=== PATIENT | female | born 2000 | race Caucasian/White ===

== ENCOUNTER → 2023-01-01 10:37 | Outpatient (CLI) | payer OTHER, SELFPAY ==
[2023-01-01 11:06] LABS: Add Manual Diff / Slide Review NO; Basophils Absolute Auto 100 /uL (0-100); Basophils Percent Auto 1.4 % (0-2); Eosinophils Absolute Auto 300 /uL (0-450); Eosinophils Percent Auto 6.7 % (2-4); Hematocrit 40.9 % (36-46); Hemoglobin 13.6 g/dL (12.0-16.0); Lymphocytes Absolute Auto 1400 /uL (1100-4500); Mean Corpuscular HGB Conc 33.2 % (30-36); Mean Corpuscular Hemoglobin 29.9 PG (26-34); Mean Corpuscular Volume 90.1 fL (80-100); Monocytes Absolute Auto 500 /uL (0-900); Monocytes Percent Auto 9.9 % (3-14); Neutrophils Absolute Auto 2800 /uL (1500-7000); Platelet Count 274 X10^3/uL (150-400); Red Blood Cell Count 4.54 X10^6/uL (4.0-5.2); Red Cell Distribution Width 12.5 % (11.6-14.8)
[2023-01-01 11:16] LABS: Alanine Aminotransferase 14 IU/L (<35); Albumin 4.3 g/dL (3.5-5.0); Albumin Globulin Ratio 1.5 (1.0-2.8); Alkaline Phosphatase 50 U/L (38-126); Aspartate Aminotransferase 20 IU/L (14-36); BUN Creatinine Ratio 18.5 (6-22); Blood Urea Nitrogen 12 mg/dL (7-17); Calcium 8.9 mg/dL (8.4-10.2); Carbon Dioxide 27 mmol/L (22-32); Chloride 104 mmol/L (98-107); Cholesterol 157 mg/dL (140-199); Estimated Glomerular Filt Rate > 60 mL/min (>60); Globulin 2.8 g/dL (1.7-4.1); Glucose 89 mg/dL (70-100); HDL Cholesterol 48 mg/dL (40-60); HEMOLYSIS < 15 (0-50); LDL Cholesterol Calculated 101 mg/dL (<100); Potassium 3.4 mmol/L (3.4-5.1); Sodium 140 mmol/L (137-145); Total Protein 7.1 g/dL (6.3-8.2); Triglycerides 38 mg/dL (35-150)
[2023-01-01 11:47] LABS: TSH w/ Reflex to FT4 3.28 uIU/mL (0.47-4.68)
[2023-01-01 12:05] LABS: Vitamin B12 307 pg/mL (239-931)
== END ==
PROVIDERS: PCP Family Medicine; Referring Provider Family Medicine; Visit Provider Family Medicine
DX: R11.2 Nausea with vomiting, unspecified (principal); R63.1 Polydipsia
CPT/HCPCS: 36415; 80053; 80061; 82306; 82607; 83036; 84443; 85025

== ENCOUNTER → 2023-01-08 11:10 | Outpatient (CLI) | payer OTHER, SELFPAY ==
[2023-01-10 09:38] LABS: Parathyroid Hormone Int 34 pg/mL (15-65)
== END ==
PROVIDERS: PCP Family Medicine; Referring Provider Family Medicine; Visit Provider Family Medicine
DX: R11.2 Nausea with vomiting, unspecified (principal)
CPT/HCPCS: 36415; 83970

== ENCOUNTER → 2023-01-24 12:12 | Outpatient (CLI) | payer OTHER, SELFPAY ==
[2023-01-24 12:35] LABS: Pregnancy Test Urine Negative (Negative)
== END ==
PROVIDERS: PCP Family Medicine; Visit Provider Physician Assistant
DX: R30.0 Dysuria (principal); R11.2 Nausea with vomiting, unspecified
CPT/HCPCS: 81025; 87086

== ENCOUNTER 2023-01-24 12:26 | Emergency (ER) | payer OTHER, SELFPAY ==
[2023-01-24 12:45] VITALS: BP 120/85; PULSE 66; RESP 16; TEMP 37.2; O2SAT 100; BMI 20.6
[2023-01-24 13:09] LABS: Add Manual Diff / Slide Review NO; Basophils Absolute Auto 100 /uL (0-100); Basophils Percent Auto 1.1 % (0-2); Eosinophils Absolute Auto 100 /uL (0-450); Eosinophils Percent Auto 1.9 % (2-4); Hematocrit 42.6 % (36-46); Hemoglobin 14.6 g/dL (12.0-16.0); Lymphocytes Absolute Auto 1200 /uL (1100-4500); Lymphocytes Percent Auto 21.8 % (25-40); Mean Corpuscular HGB Conc 34.3 % (30-36); Mean Corpuscular Hemoglobin 30.6 PG (26-34); Mean Corpuscular Volume 89.4 fL (80-100); Monocytes Absolute Auto 500 /uL (0-900); Monocytes Percent Auto 9.2 % (3-14); Neutrophils Absolute Auto 3800 /uL (1500-7000); Platelet Count 315 X10^3/uL (150-400); Red Blood Cell Count 4.76 X10^6/uL (4.0-5.2); Red Cell Distribution Width 12.3 % (11.6-14.8); White Blood Cell Count 5.7 X10^3/uL (4.5-11.0)
[2023-01-24 13:17] LABS: Alanine Aminotransferase 17 IU/L (<35); Albumin 4.7 g/dL (3.5-5.0); Albumin Globulin Ratio 1.4 (1.0-2.8); Alkaline Phosphatase 55 U/L (38-126); Aspartate Aminotransferase 20 IU/L (14-36); BUN Creatinine Ratio 18.4 (6-22); Bilirubin Total 0.7 mg/dL (0.2-1.3); Blood Urea Nitrogen 14 mg/dL (7-17); Calcium 9.5 mg/dL (8.4-10.2); Carbon Dioxide 25 mmol/L (22-32); Chloride 105 mmol/L (98-107); Estimated Glomerular Filt Rate > 60 mL/min (>60); Globulin 3.4 g/dL (1.7-4.1); Glucose 95 mg/dL (70-100); HEMOLYSIS < 15 (0-50); Lipase 55 U/L (23-300); Potassium 3.5 mmol/L (3.4-5.1); Sodium 141 mmol/L (137-145); Total Protein 8.1 g/dL (6.3-8.2)
--- NOTE | 2023-01-24 14:36 | DI.CT.S_ITS ---
PROCEDURE: CT ABDOMEN PELVIS W CON INDICATIONS: epigastric pain, vomiting TECHNIQUE: After the administration of intravenous contrast, axial sections acquired from the lung bases to the pubic symphysis. Coronal and sagittal reformats were performed. For radiation dose reduction, the following was used: automated exposure control, adjustment of mA and/or kV according to patient size. COMPARISON: None. FINDINGS: Image quality: Excellent. Lung bases: Unremarkable. Heart: No significant findings. ABDOMEN: Liver: Unremarkable. Gallbladder: Unremarkable. Biliary ducts: Unremarkable. Pancreas: Unremarkable. Spleen: Unremarkable. Adrenal Glands: Unremarkable. Kidneys and Ureters: Unremarkable. Stomach and Bowel: There is mild diffuse thickening of the 2nd portion of the duodenum. The bowel is otherwise unremarkable. Stomach, small bowel loops, and colon are unremarkable. Peritoneum: No abnormal intraperitoneal fluid. No free air. Ventral Wall: No hernias. Abdominal Nodes: No retroperitoneal or mesenteric adenopathy by size criteria. Vessels: Aorta and inferior vena cava are normal in size. Note is made of a markedly dilated refluxing left gonadal vein as well as a dilated refluxing right gonadal vein giving rise to extensive paraovarian varicosities. PELVIS: Pelvic Organs: Extensive bilateral paraovarian varicosities. Numerous bilateral ovarian cysts. Bladder: Unremarkable. Pelvic Nodes: No enlarged lymph nodes. Miscellaneous: No hernias are seen. Bones: Unremarkable. IMPRESSION: 1. Mild diffuse thickening of the 2nd portion the duodenum suggest duodenitis. Consider peptic ulcer disease as a potential etiology. 2. Note is made of bilateral dilated refluxing gonadal veins, left much more dilated than right, with associated extensive paraovarian varicosities. In a certain subsegment of patients, this can be associated with the clinical syndrome of chronic pelvic venous congestion. 3. Numerous bilateral variance cysts can be associated with a clinical syndrome of polycystic ovaries. Dictated by: Jeremiah De Guzman M.D. on 01/24/2023 at 15:30 Approved by: Jeremiah De Guzman M.D. on 01/24/2023 at 15:36
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
[2023-01-24] MEDS: PANTOPRAZOLE 40 MG VIAL IV (14:46)
[2023-01-24] MEDS: MAG HYDROX/ALUMINUM/SIMETH SUS 20 ML, LIDOCAINE VISCOUS 2% 15 ML PO (14:46)
[2023-01-24] MEDS: SODIUM CHLORIDE 0.9% 1,000 ML 1000 ML IV (14:46)
[2023-01-24 14:57] LABS: C-Reactive Protein Quant < 0.5 mg/dL (<1.0)
[2023-01-24] MEDS: ONDANSETRON 4 MG/2 ML INJ IV (15:09)
[2023-01-24 15:12] LABS: HCG Quantitative /Beta subunit < 2.4 mIU/mL
[2023-01-24 15:16] LABS: Bilirubin Urine UA 2+ (NEGATIVE); Color Urine UA YELLOW; Glucose Urine UA NEGATIVE (Negative); Ketones Urine UA 3+ (NEGATIVE); Leukocyte Esterase Urine UA NEGATIVE (NEGATIVE); Nitrite Urine UA NEGATIVE (Negative); Occult Blood Urine UA 2+ (Negative); Protein Urine UA 1+ (Negative); Specific Gravity Urine UA >=1.030 (1.000-1.035); Urobilinogen Urine UA 0.2 E.U./dL (0.2)
[2023-01-24 15:18] LABS: Appearance Urine UA CLOUDY
[2023-01-24 15:27] LABS: Amorphous Sediment Urine 1+; Bacteria Urine Moderate (10-30); Culture Indicated Urine Specimen Cultured; Ictotest Urine Positive (Negative); RBC Urine 1-5/HPF (0-5/HPF); Squamous Epithelial Cell Urine 5-10 /HPF (0-5/HPF); WBC Urine 1-5/HPF (0-5/HPF)
[2023-01-24] MEDS: metroNIDAZOLE 500 MG TABLET PO (15:58)
[2023-01-24] MEDS: CLARITHROMYCIN 500 MG TABLET PO (16:13)
[2023-01-24 16:28] VITALS: BP 117/70; PULSE 62; RESP 17; O2SAT 99
== END 2023-01-24 16:29 | disposition home or self-care (01) ==
PROVIDERS: Emergency Medicine; Emergency Provider Nurse Practitioner Critical Care Medicine; PCP Family Medicine
DX: K29.80 Duodenitis without bleeding (principal); K21.9 Gastro-esophageal reflux disease without esophagitis; R30.0 Dysuria; R11.2 Nausea with vomiting, unspecified
CPT/HCPCS: 36415; 74177; 80053; 81001; 81025; 83690; 84702; 85025; 86140; 87086; 96361; 96374; 96375; 99284; C9113; J2405; Q9967

== ENCOUNTER → 2023-03-06 14:52 | Outpatient (CLI) | payer OTHER, SELFPAY | PROVIDERS: PCP Family Medicine; Referring Provider Family Medicine; Visit Provider Family Medicine | DX: R00.2 Palpitations (principal) | CPT/HCPCS: 93242 ==

== ENCOUNTER 2023-03-28 11:48 | Day surgery (SDC) | payer OTHER, SELFPAY ==
--- NOTE | 2023-03-28 | PATH_ITS ---
[facility] Accession Number: [id number] No. of containers..04 Tissue . 01 Material submitted: . PART A: duodenum - DUODENUM BIOPSY PART B: gastrointestinal site - GASTRIC ANTRUM BIOPSY PART C: gastrointestinal site - FUNDUS BIOPSY PART D: esophagus - ESOPHAGEAL BIOPSY . 01 Diagnosis: A. Duodenum, Biopsy: Duodenal mucosa with reactive epithelial changes consistent with peptic duodenitis. No evidence of celiac disease. . B. Gastric Antrum, Biopsy: Gastric mucosa with minimal chronic nonspecific inflammation. No Helicobacter pylori organisms identified on immunohistochemical evaluation. No intestinal metaplasia, dysplasia or malignancy. . C. Fundus, Biopsy: Gastric mucosa with no significant diagnostic alterations. No Helicobacter pylori organisms identified on H/E slide. No intestinal metaplasia, dysplasia or malignancy. . D. Esophagus, Biopsy: Proximal gastric glandular type mucosa with minimal chronic inflammation. No goblet cell metaplasia, fungal organisms, or Helicobacter pylori organisms identified on H/E slide. No dysplasia or malignancy. [facility] 04/07/2023 1201 Local . 01 Electronically signed: . Christi Chaudhari MD, Pathologist NPI- [id number] . 01 Gross description: . The specimen is received in formalin in four parts, all labeled with the patient's name and . . A. Designated duodenum biopsy consists of a single frye soft tissue fragment measuring 0.3 cm in greatest dimension. Submitted entirely in cassette A1. B. Designated gastric antrum biopsy consists of a single frye soft tissue fragment measuring 0.3 cm in greatest dimension. Submitted entirely in cassette B1. C. Designated fundus biopsy consists of a single frye soft tissue fragment measuring 0.3 cm in greatest dimension. Submitted entirely in cassette C1. D. Designated esophageal biopsy consists of a single frye soft tissue fragment measuring 0.3 cm in greatest dimension. Submitted entirely in cassette D1. ([id number]) /[facility] 04/02/2023 1641 Local . 01 Microscopic: . B. An immunohistochemical stain was performed to evaluate for Helicobacter organisms and is negative. The control stain showed appropriate reactivity. . . * This test was developed and its performance characteristics determined by [facility]. It has not been cleared or approved by the U.S. Food and Drug Administration. The FDA has determined that such clearance or approval is not necessary. This test is used for clinical purposes. It should not be regarded as investigational or for research. . 01 Pathologist provided ICD-10: K29.30, K21.9, K29.80 . 01 CPT . 664227, 438757, 294943, 571835, [id number] Specimen Comment: A courtesy copy of this report has been sent to [facility] Performed at: 01 [facility] [address] [place] [address], [place], [place] [id number] MD Hernán Barboas MD Phone: [phone]
[2023-03-28 12:07] VITALS: BP 114/79; PULSE 90; RESP 16; TEMP 36.2; O2SAT 98; BMI 22.8
[2023-03-28] MEDS: LACTATED RINGERS 1,000 ML 84 ML IV (12:29)
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
--- NOTE | 2023-03-28 13:24 | P.OP.EGD_ITS ---
Operative Date/Time/Diagnoses Date of procedure: 03/28/23 Time of procedure: 13:24 Pre-op diagnosis: duodenitis Procedure & Clinicians Study performed: EGD and biopsy Same procedure as scheduled: Yes Indications: CT scan with duodenitis epigastric abdominal pain and nausea, vomiting, weight loss Surgeon: Ashlee Montez Procedure Notes Procedure in detail: Patient was taken to the endoscopy suite and placed supine. Time-out was performed. With the help of anesthesiologist conscious sedation was induced and monitored throughout the case. The EGD scope was placed into the mouth and advanced into the esophagus with minimal difficulty. The esophagus appeared n ormal. The scope was advanced into the stomach. There was redness possibly gastritis in the fundus as well as around the pylorus. The scope was advanced past the pylorus and into the duodenum which also had a little bit of erythema in the mucosa. The duodenum was biopsied and photographed. The pylorus was also biopsied and photographed. The gastric fundus was biopsied photograph of the GE junction with scope retroflexed from the stomach was obtained. The scope was then withdrawn into the esophagus and the GE junction was photographed, and biopsied. The scope was then withdrawn through the esophagus. At the end of the case the patient had bronchospasm and required additional pulmonary support but otherwise tolerated the procedure well and then after a few minutes of additional pulmonary support went in good condition to the post operative care unit. Findings: gastritis Specimen(s): other (1. Duodenal biopsy 2. Gastric and some biopsy 3. Fundus biopsy 4. Esophageal biopsy ) Complications: none Post-procedure Recommendations: Continue medication(s) Plan for aftercare: I would recommend continuing the antacid medication that was recommended. You will receive a letter with biopsy results and if you have questions or concerns about the procedure findings or pathology report please do not hesitate to contact the office of [facility] as needed. Follow up: as needed Disposition: PACU
[2023-03-28 13:35] VITALS: BP 98/65; PULSE 90; RESP 16; TEMP 36.4; O2SAT 84
[2023-03-28] MEDS: ALBUTEROL 2.5 MG/3 ML NEB (ADULT) INH (13:38)
[2023-03-28 13:42] VITALS: BP 97/55; PULSE 96; RESP 12; O2SAT 100
[2023-03-28 13:47] VITALS: BP 94/64; PULSE 100; RESP 20; O2SAT 99
[2023-03-28 13:50] VITALS: BP 100/67; PULSE 98; RESP 14; O2SAT 98
== END 2023-03-28 14:10 | disposition home or self-care (01) ==
PROVIDERS: PCP Family Medicine; Referring Provider Surgery; Visit Provider Surgery
PROC: 0DJ08ZZ Inspection of Upper Intestinal Tract, Via Natural or Artificial Opening Endoscopic (ICD-10-PCS; CPT 43235; principal; 2023-03-28 12:45)
DX: K29.80 Duodenitis without bleeding (principal); K29.50 Unspecified chronic gastritis without bleeding
CPT/HCPCS: 43239; J2704; J7613

== ENCOUNTER → 2023-04-09 15:08 | Outpatient (CLI) | payer OTHER, SELFPAY ==
--- NOTE | 2023-04-09 15:09 | DI.US.S_ITS ---
PROCEDURE: US PELVIC COMPLETE INDICATIONS: POLYCYSTIC OVARIAN SYNDROME TECHNIQUE: Real-time scanning was performed of the pelvic organs, with image documentation. Additional endovaginal scanning was necessary due to incomplete visualization of the adnexal and endometrial structures by transabdominal scanning. COMPARISON: None. FINDINGS: Uterus: Uterus is anteverted and normal in size at 7.3 by 4.9 x 3.0 cm. The myometrium is homogeneous. The endometrium measures 4.3 mm combined thickness. Ovaries: The right ovary measures 4.3 x 1.7 x 1.9 cm, with a calculated ovarian volume of 7.5 cc. The left ovary measures 3.2 x 2.2 x 2.2 cm, with a calculated ovarian volume of 8.2 cc. The ovaries have a normal sonographic appearance. Both ovaries have greater than 12 follicles bilaterally. No adnexal masses are seen. Other: No pathologic free abdominal or pelvic fluid. Incidental note is made of prominent periuterine vascularity, measuring up to 5.4 mm in diameter with Valsalva IMPRESSION: Greater than 12 follicles noted in the each ovary. In the proper clinical setting, this finding has been correlated with polycystic ovarian syndrome. Prominent periuterine vascularity may reflect pelvic congestion syndrome as well. Approved by: Siva Streeter M.D. on 04/09/2023 at 19:25
== END ==
PROVIDERS: PCP Family Medicine; Referring Provider Obstetrics & Gynecology; Visit Provider Obstetrics & Gynecology
DX: E28.2 Polycystic ovarian syndrome (principal); R10.2 Pelvic and perineal pain
CPT/HCPCS: 76830; 76856

== ENCOUNTER → 2023-05-07 10:55 | Outpatient (CLI) | payer OTHER, SELFPAY ==
[2023-05-07 12:36] LABS: Cholesterol 147 mg/dL (140-199); Glucose 96 mg/dL (70-100); HDL Cholesterol 51 mg/dL (40-60); LDL Cholesterol Calculated 90 mg/dL (<100); Triglycerides 31 mg/dL (35-150)
[2023-05-07 12:42] LABS: Free T4, Direct Thyroxine 1.22 ng/dL (0.78-2.19)
[2023-05-09 12:41] LABS: Insulin Level Total 4.2 uIU/mL (2.6-24.9)
[2023-05-13 10:34] LABS: Percent Free Testosterone 1.28 % (0.50-2.80); Testosterone Free 0.29 ng/dL (0.10-0.85); Testosterone Total 22.6 ng/dL (10.0-55.0)
== END ==
PROVIDERS: PCP Family Medicine; Referring Provider Obstetrics & Gynecology; Visit Provider Obstetrics & Gynecology
DX: E03.9 Hypothyroidism, unspecified (principal); N92.6 Irregular menstruation, unspecified
CPT/HCPCS: 36415; 80061; 82627; 82947; 83036; 83525; 84402; 84403; 84439; 84443